=== PATIENT | male | born 1985 | race African-American/Black ===

== ENCOUNTER 2018-09-15 21:12 | Inpatient (IN) ==
[2018-09-15] MEDS ORDERED: levETIRAcetam 500 MG/5 ML VIAL IV ONE (21:20)
[2018-09-15] MEDS ORDERED: LORazepam 2 MG/1 ML VIAL ONE ×2 (21:22→23:21)
[2018-09-15] MEDS ORDERED: ETOMIDATE 20 MG/10 ML VIAL IV STA (21:40)
[2018-09-15] MEDS ORDERED: ROCURONIUM 100 MG/10 ML VIAL IV STA (21:40)
[2018-09-15 21:50] LABS: Alanine Aminotransferase 22 U/L (16-61); Albumin 3.7 G/DL (3.4-5.0); Alkaline Phosphatase 74 U/L (45-117); Aspartate Amino Transferase 38 U/L (0-37); Blood Urea Nitrogen 14 MG/DL (7-18); Glucose 123 MG/DL (74-106); Osmolality,Calculated 284.1 MOS/KG (273-304); Potassium 3.1 MMOL/L (3.5-5.1); Sodium 142 MMOL/L (136-145); Total Protein 7.5 G/DL (6.4-8.3)
[2018-09-15 21:53] LABS: Calcium 14.9 MG/DL (8.5-10.1)
[2018-09-15] MEDS ORDERED: ATROPINE 1 MG/10 ML SYRINGE IV ONE (21:54)
[2018-09-15] MEDS ORDERED: hydrALAZINE 20 MG/1 ML VIAL IV STA (22:07)
[2018-09-15] MEDS ORDERED: LABETALOL 20 MG/4 ML SYRINGE IV STA (22:07)
[2018-09-15 22:09] LABS: Basophils % 0.4 % (0.0-0.8); Eosinophils # 0.2 10*3/uL (0.0-0.87); Eosinophils % 1.7 % (0.00-10.9); Hematocrit 38.4 VOL% (42.0-52.0); Hemoglobin 11.5 GM/DL (14.0-18.0); Immature Granulocytes % 0.3 %; Immature Granulocytes Absolute 0.03 #; Lymphocytes # 3.2 10*3/uL (1.4-4.0); Lymphocytes % 28.6 % (21.2-54.2); Mean Corpuscular HGB Conc 29.9 GM/DL (32-36); Mean Corpuscular Hemoglobin 22 PG (27-34); Mean Corpuscular Volume 71.9 FL (87-102); Monocytes # 1.1 10*3/uL (0.11-0.8); Monocytes % 9.5 % (1.7-12.7); Neutrophils # 6.6 10*3/uL (1.4-7.4); Neutrophils % 59.5 % (38.7-73.9); Platelet Count 183 T/CUMM (130-400); Red Blood Count 5.34 MC/CUMM (3.8-5.5); Red Cell Distribution Width 18.1 % (9.3-17.3); White Blood Count 11.1 T/CUMM (4-12)
[2018-09-15] MEDS ORDERED: SODIUM CHLORIDE 0.9% 1,000 ML IV STA ×2 (22:13→22:33)
[2018-09-15] MEDS ORDERED: FUROSEMIDE 40 MG/4 ML VIAL IV STA (22:14)
[2018-09-15] MEDS ORDERED: methylPREDNISolone SOD SUC 125 MG/2 ML VIAL IV STA (22:14)
[2018-09-15 23:02] LABS: ABG Base Excess 11.5 MMOL/L (-2.5-2.5); ABG HCO3 35.3 MMOL/L (20-26); ABG Oxygen Saturation 99.3 % (95-100); ABG PCO2 60.4 MM HG (35-48); ABG PH 7.415 (7.35-7.45); ABG TCO2 34.3 MMOL/L (23-27)
[2018-09-15 23:22] LABS: Apearance,Urine CLEAR (Clear); Bacteria,Urine Occasional /HPF (Few); Bilirubin,Urine Negative (Negative); Blood, Urine Negative (Negative); Glucose,Urine (UA) Negative (Negative); Hyaline Casts,Urine 1 /LPF (0-3); Ketones,Urine Negative (Negative); Mucus,Urine Occasional /LPF (Occasional); Nitrite,Urine Negative (Negative); Protein,Urine Negative; RBC,Urine 1 /HPF (0-4); Squamous Epithelial Cell,Urine Occasional /HPF (0-10); Urine Color Straw (Yellow); Urine Specific Gravity 1.006 (1.001-1.035); Urine Urobilinogen < 2.0 EU/DL (0.2-1.0); WBC,Urine 3 /HPF (0-6)
[2018-09-15 23:28] LABS: Barbiturates Screen,Urine Negative (Negative); Benzodiazepines Screen,Urine Positive (Negative); Cannabinoid Screen,Urine Negative (Negative); Opiate Screen,Urine Negative (Negative); Phencyclidine Screen,Urine Negative (Negative)
[2018-09-15] MEDS ORDERED: MIDAZOLAM 100 MG in SODIUM CHLORIDE 0.9% 80 ML IV SCH (23:30)
[2018-09-15] MEDS ORDERED: MIDAZOLAM 10 MG/2 ML VIAL IV STA (23:45)
[2018-09-15] MEDS ORDERED: MIDAZOLAM 10 MG/2 ML VIAL ONE (23:48)
[2018-09-16] MEDS ORDERED: ALBUTEROL/IPRATROPIUM 3 ML NEB RESP TX PRN (00:10)
[2018-09-16] MEDS ORDERED: ONDANSETRON 4 MG/2 ML VIAL IV PRN (00:10)
[2018-09-16] MEDS ORDERED: ALBUTEROL 2.5 MG/3 ML NEB RESP TX PRN (00:10)
[2018-09-16] MEDS ORDERED: ACETAMINOPHEN 325 MG TABLET PO PRN (00:10)
[2018-09-16] MEDS ORDERED: metroNIDAZOLE INJ 500 MG in PREMIX 1 EACH IV SCH (00:30)
[2018-09-16] MEDS ORDERED: cefTRIAXone 2,000 MG in SODIUM CHLORIDE 0.9% 100 ML IV SCH (00:30)
[2018-09-16] MEDS ORDERED: THIAMINE INJ 100 MG, FOLIC ACID INJ 1 MG, MULTIVITAMIN INJ 10 ML in SODIUM CHLORIDE 0.9... IV ONE (01:00)
[2018-09-16] MEDS ORDERED: MAGNESIUM SULF RIDER 4 GM in PREMIX 1 EACH IV PRN (01:03)
[2018-09-16] MEDS ORDERED: GLUCAGON 1 MG VIAL IM PRN (01:04)
[2018-09-16 01:10] LABS: Calcium 15.1 MG/DL (8.5-10.1)
[2018-09-16] MEDS: MIDAZOLAM 100 MG in SODIUM CHLORIDE 0.9% 80 ML IV PRN (01:52)
[2018-09-16] MEDS: SODIUM CHLORIDE 0.9% 1,000 ML IV SCH ×4 (01:52→21:29)
[2018-09-16] MEDS ORDERED: LORazepam 2 MG/1 ML VIAL IV PRN (02:19)
[2018-09-16] MEDS: AMPICILLIN/SULBACTAM 3,000 MG in SODIUM CHLORIDE 0.9% 100 ML IV SCH ×4 (02:31→21:18)
[2018-09-16 02:47] LABS: Basophils % 0.2 % (0.0-0.8); Eosinophils % 0.1 % (0.00-10.9); Hematocrit 40.7 VOL% (42.0-52.0); Immature Granulocytes % 0.3 %; Immature Granulocytes Absolute 0.04 #; Lymphocytes # 1.2 10*3/uL (1.4-4.0); Lymphocytes % 9.5 % (21.2-54.2); Mean Corpuscular Hemoglobin 21 PG (27-34); Mean Corpuscular Volume 70.4 FL (87-102); Monocytes # 0.5 10*3/uL (0.11-0.8); Monocytes % 4.1 % (1.7-12.7); Neutrophils # 11.3 10*3/uL (1.4-7.4); Neutrophils % 85.8 % (38.7-73.9); Platelet Count 213 T/CUMM (130-400); Red Blood Count 5.78 MC/CUMM (3.8-5.5); Red Cell Distribution Width 18.6 % (9.3-17.3); White Blood Count 13.1 T/CUMM (4-12)
[2018-09-16] MEDS: PROPOFOL 1,000 MG/100 ML BOTTLE IV SCH ×5 (02:50→23:37)
[2018-09-16] MEDS: PANTOPRAZOLE 40 MG VIAL IV SCH ×2 (02:51→08:12)
[2018-09-16] MEDS: MAGNESIUM SULF RIDER 2 GM in PREMIX 1 EACH IV PRN ×2 (02:56→05:06)
[2018-09-16 02:57] LABS: Hemoglobin 12.3 GM/DL (14.0-18.0)
[2018-09-16] MEDS: POTASSIUM CHLORIDE RIDER 10 MEQ in PREMIX 1 EACH IV PRN ×10 (02:57→21:28)
[2018-09-16 03:01] LABS: INR 1.7; PT Patient Result 18.7 SECS
[2018-09-16 03:32] LABS: Osmolality,Calculated 281.3 MOS/KG (273-304); Potassium 3.2 MMOL/L (3.5-5.1)
[2018-09-16 03:44] LABS: Calcium 15.4 MG/DL (8.5-10.1)
[2018-09-16 03:59] LABS: Folate 10.3 NG/ML (5.4-24.0); Vitamin B12 489 PG/ML (211-911)
[2018-09-16 04:07] LABS: ABG Base Excess 12.3 MMOL/L (-2.5-2.5); ABG HCO3 36.2 MMOL/L (20-26); ABG PCO2 41.2 MM HG (35-48); ABG PH 7.551 (7.35-7.45); ABG TCO2 31.9 MMOL/L (23-27); Allen Test Positive; Pt O2 Delivery Device Ventilator
[2018-09-16 04:07] LABS: % Iron Saturation 11.7 % (18-50); Ferritin 77.2 ng/ml (26-388)
[2018-09-16 04:11] LABS: Sedimentation Rate-Westergren 10 MM/HR (0-15)
[2018-09-16 04:20] LABS: Acanthocytes Few; Anisocytosis 1+; Hypochromasia 1+; Ovalocytes Few
[2018-09-16 04:21] LABS: Platelet Estimate Adequate; Target Cells 1+
[2018-09-16] MEDS: ENOXAPARIN 40 MG/0.4 ML SYRINGE SUBCUT SCH (08:11)
[2018-09-16] MEDS: FOLIC ACID 1 MG TABLET PO SCH (08:12)
[2018-09-16] MEDS: THIAMINE 100 MG TABLET PO SCH (08:12)
[2018-09-16] MEDS: MULTIVITAMIN (CENTRUM) TABLET PO SCH (08:12)
[2018-09-16 09:00] LABS: Hemoglobin A1 (Alkaline) 98.2 % (96.5-98.5); Hemoglobin A2 (Alkaline) 1.8 % (1.5-3.5)
[2018-09-16] MEDS: ALBUTEROL/IPRATROPIUM 3 ML NEB RESP TX SCH ×2 (12:18→19:49)
[2018-09-16] MEDS: FUROSEMIDE 40 MG/4 ML VIAL IV SCH (15:13)
[2018-09-16] MEDS: CALCITONIN 400 UNIT/2 ML VIAL IM SCH (15:14)
[2018-09-17] MEDS: ALBUTEROL/IPRATROPIUM 3 ML NEB RESP TX SCH ×4 (00:23→19:25)
[2018-09-17] MEDS: AMPICILLIN/SULBACTAM 3,000 MG in SODIUM CHLORIDE 0.9% 100 ML IV SCH ×4 (01:13→19:58)
[2018-09-17] MEDS: CALCITONIN 400 UNIT/2 ML VIAL IM SCH ×2 (02:04→17:01)
[2018-09-17] MEDS: SODIUM CHLORIDE 0.9% 1,000 ML IV SCH (03:27)
[2018-09-17 03:53] LABS: ABG Base Excess 5.1 MMOL/L (-2.5-2.5); ABG Oxygen Saturation 99.4 % (95-100); ABG PCO2 45.1 MM HG (35-48); ABG PH 7.433 (7.35-7.45); Allen Test Positive; Pt O2 Delivery Device Ventilator
[2018-09-17] MEDS: PROPOFOL 1,000 MG/100 ML BOTTLE IV SCH ×4 (03:55→20:56)
[2018-09-17 05:24] LABS: Basophils % 0.1 % (0.0-0.8); Hemoglobin 10.9 GM/DL (14.0-18.0); Immature Granulocytes % 0.7 %; Immature Granulocytes Absolute 0.12 #; Mean Corpuscular HGB Conc 29.5 GM/DL (32-36); Mean Corpuscular Hemoglobin 21 PG (27-34); Mean Corpuscular Volume 70.7 FL (87-102); Monocytes % 5.6 % (1.7-12.7); Neutrophils # 14.7 10*3/uL (1.4-7.4); Neutrophils % 82.6 % (38.7-73.9); Platelet Count 153 T/CUMM (130-400); Red Blood Count 5.22 MC/CUMM (3.8-5.5); Red Cell Distribution Width 18.5 % (9.3-17.3); White Blood Count 17.8 T/CUMM (4-12)
[2018-09-17 05:33] LABS: Hematocrit 36.9 VOL% (42.0-52.0)
[2018-09-17 05:49] LABS: Calcium 12.1 MG/DL (8.5-10.1); Osmolality,Calculated 295.4 MOS/KG (273-304); Potassium 3.9 MMOL/L (3.5-5.1)
[2018-09-17 06:20] LABS: Platelet Estimate Adequate; Polychromasia Few; Target Cells Few
[2018-09-17] MEDS: POTASSIUM CHLORIDE RIDER 10 MEQ in PREMIX 1 EACH IV PRN ×2 (06:25→07:42)
[2018-09-17] MEDS ORDERED: hydrALAZINE 20 MG/1 ML VIAL IV ONE (06:35)
[2018-09-17] MEDS: DEXTROSE 50% 25 GM/50 ML SYRINGE IV PRN ×3 (07:48→11:45)
[2018-09-17] MEDS: FOLIC ACID 1 MG TABLET PO SCH (08:03)
[2018-09-17] MEDS: FUROSEMIDE 40 MG/4 ML VIAL IV SCH ×2 (08:03→16:10)
[2018-09-17] MEDS: MULTIVITAMIN (CENTRUM) TABLET PO SCH (08:03)
[2018-09-17] MEDS: THIAMINE 100 MG TABLET PO SCH (08:03)
[2018-09-17] MEDS: ENOXAPARIN 40 MG/0.4 ML SYRINGE SUBCUT SCH (08:03)
[2018-09-17] MEDS: PANTOPRAZOLE 40 MG VIAL IV SCH (08:06)
[2018-09-17] MEDS: DEXTROSE 5% NACL 0.45% 1,000 ML IV SCH (09:11)
[2018-09-18] MEDS: DEXTROSE 50% 25 GM/50 ML SYRINGE IV PRN ×6 (00:08→23:28)
[2018-09-18] MEDS: ALBUTEROL/IPRATROPIUM 3 ML NEB RESP TX SCH ×4 (01:54→19:23)
[2018-09-18] MEDS: CALCITONIN 400 UNIT/2 ML VIAL IM SCH (02:54)
[2018-09-18] MEDS: AMPICILLIN/SULBACTAM 3,000 MG in SODIUM CHLORIDE 0.9% 100 ML IV SCH ×2 (02:55→08:22)
[2018-09-18] MEDS: PROPOFOL 1,000 MG/100 ML BOTTLE IV SCH ×6 (02:55→23:45)
[2018-09-18 04:31] LABS: Allen Test Positive; Pt O2 Delivery Device Ventilator
[2018-09-18 04:32] LABS: ABG Base Excess 3.4 MMOL/L (-2.5-2.5); ABG HCO3 27.5 MMOL/L (20-26); ABG Oxygen Saturation 97.9 % (95-100); ABG PCO2 38.3 MM HG (35-48); ABG PH 7.461 (7.35-7.45); ABG PO2 96.9 MM HG (80-95)
[2018-09-18 05:34] LABS: Calcium 11.4 MG/DL (8.5-10.1); Potassium 3.5 MMOL/L (3.5-5.1)
[2018-09-18] MEDS: DEXTROSE 5% NACL 0.45% 1,000 ML IV SCH (05:35)
[2018-09-18] MEDS: MIDAZOLAM 100 MG in SODIUM CHLORIDE 0.9% 80 ML IV PRN (05:38)
[2018-09-18 07:07] LABS: Basophils % 0.2 % (0.0-0.8); Hematocrit 36.7 VOL% (42.0-52.0); Hemoglobin 11.1 GM/DL (14.0-18.0); Immature Granulocytes % 0.8 %; Immature Granulocytes Absolute 0.14 #; Lymphocytes # 1.6 10*3/uL (1.4-4.0); Lymphocytes % 9.7 % (21.2-54.2); Mean Corpuscular HGB Conc 30.2 GM/DL (32-36); Mean Corpuscular Hemoglobin 21 PG (27-34); Mean Corpuscular Volume 70.8 FL (87-102); Monocytes % 5.7 % (1.7-12.7); Neutrophils # 14.1 10*3/uL (1.4-7.4); Neutrophils % 83.6 % (38.7-73.9); Platelet Count 217 T/CUMM (130-400); Red Blood Count 5.18 MC/CUMM (3.8-5.5); Red Cell Distribution Width 18.3 % (9.3-17.3); White Blood Count 16.9 T/CUMM (4-12)
[2018-09-18] MEDS: PANTOPRAZOLE 40 MG VIAL IV SCH (08:23)
[2018-09-18] MEDS: ENOXAPARIN 40 MG/0.4 ML SYRINGE SUBCUT SCH (08:23)
[2018-09-18] MEDS: POTASSIUM CHLORIDE 20 MEQ/15 ML UDCUP PER TUBE PRN ×2 (08:23→11:44)
[2018-09-18] MEDS: FOLIC ACID 1 MG TABLET PO SCH (08:23)
[2018-09-18] MEDS: MULTIVITAMIN (CENTRUM) TABLET PO SCH (08:23)
[2018-09-18] MEDS: THIAMINE 100 MG TABLET PO SCH (08:23)
[2018-09-18 08:51] LABS: Anisocytosis 1+; Platelet Estimate Normal; Target Cells Few
[2018-09-18 08:52] LABS: Poikilocytosis 1+
[2018-09-18 08:53] LABS: Hypochromasia Slight; Macrocytosis 1+
[2018-09-18] MEDS: DEXTROSE 5% NACL 0.22% 1,000 ML IV SCH (10:48)
[2018-09-18] MEDS: VANCOMYCIN INJ 1,000 MG in SODIUM CHLORIDE 0.9% 250 ML IV SCH ×2 (11:38→23:25)
[2018-09-19] MEDS: ALBUTEROL/IPRATROPIUM 3 ML NEB RESP TX SCH ×4 (00:21→19:40)
[2018-09-19] MEDS: PROPOFOL 1,000 MG/100 ML BOTTLE IV SCH ×8 (02:55→23:06)
[2018-09-19] MEDS: DEXTROSE 50% 25 GM/50 ML SYRINGE IV PRN (03:38)
[2018-09-19 04:04] LABS: ABG Base Excess 1.9 MMOL/L (-2.5-2.5); ABG HCO3 25.5 MMOL/L (20-26); ABG PCO2 35.9 MM HG (35-48); ABG PH 7.469 (7.35-7.45); ABG PO2 92.5 MM HG (80-95); ABG TCO2 26.6 MMOL/L (23-27); Allen Test Positive; Pt O2 Delivery Device Ventilator
[2018-09-19 05:27] LABS: Basophils # 0.1 10*3/uL (0.0-0.2); Basophils % 0.3 % (0.0-0.8); Eosinophils # 0.1 10*3/uL (0.0-0.87); Eosinophils % 0.4 % (0.00-10.9); Immature Granulocytes % 0.5 %; Immature Granulocytes Absolute 0.08 #; Lymphocytes # 1.6 10*3/uL (1.4-4.0); Lymphocytes % 9.6 % (21.2-54.2); Mean Corpuscular HGB Conc 29.4 GM/DL (32-36); Mean Corpuscular Hemoglobin 21 PG (27-34); Mean Corpuscular Volume 72.2 FL (87-102); Monocytes # 1.1 10*3/uL (0.11-0.8); Monocytes % 6.8 % (1.7-12.7); Neutrophils # 13.4 10*3/uL (1.4-7.4); Neutrophils % 82.4 % (38.7-73.9); Platelet Count 164 T/CUMM (130-400); Red Blood Count 4.71 MC/CUMM (3.8-5.5); White Blood Count 16.2 T/CUMM (4-12)
[2018-09-19 05:46] LABS: Hypochromasia 1+
[2018-09-19 05:47] LABS: Ovalocytes Slight; Platelet Estimate Adequate
[2018-09-19 05:49] LABS: Calcium 10.3 MG/DL (8.5-10.1); Potassium 3.3 MMOL/L (3.5-5.1)
[2018-09-19] MEDS ORDERED: MAGNESIUM SULF RIDER 4 GM in PREMIX 1 EACH IV ONE (07:19)
[2018-09-19] MEDS: DEXTROSE 5% NACL 0.22% 1,000 ML IV SCH (08:43)
[2018-09-19] MEDS: LEVOFLOXACIN INJ 750 MG in PREMIX 1 EACH IV SCH (09:25)
[2018-09-19] MEDS: PANTOPRAZOLE 40 MG VIAL IV SCH (09:26)
[2018-09-19] MEDS: ENOXAPARIN 40 MG/0.4 ML SYRINGE SUBCUT SCH (09:26)
[2018-09-19] MEDS: THIAMINE 100 MG TABLET PO SCH (09:26)
[2018-09-19] MEDS: MULTIVITAMIN (CENTRUM) TABLET PO SCH (09:26)
[2018-09-19] MEDS: FOLIC ACID 1 MG TABLET PO SCH (09:26)
[2018-09-19] MEDS: VANCOMYCIN INJ 1,000 MG in SODIUM CHLORIDE 0.9% 250 ML IV SCH ×2 (11:37→23:29)
[2018-09-19] MEDS: POTASSIUM CHLORIDE 20 MEQ/15 ML UDCUP PER TUBE PRN ×3 (11:38→18:28)
[2018-09-20] MEDS: ALBUTEROL/IPRATROPIUM 3 ML NEB RESP TX SCH ×4 (00:50→20:35)
[2018-09-20 01:08] LABS: Basophils % 0.3 % (0.0-0.8); Eosinophils # 0.3 10*3/uL (0.0-0.87); Eosinophils % 2.8 % (0.00-10.9); Hematocrit 29.1 VOL% (42.0-52.0); Hemoglobin 8.6 GM/DL (14.0-18.0); Immature Granulocytes % 0.5 %; Immature Granulocytes Absolute 0.06 #; Lymphocytes % 16.4 % (21.2-54.2); Mean Corpuscular HGB Conc 29.6 GM/DL (32-36); Mean Corpuscular Hemoglobin 21 PG (27-34); Mean Corpuscular Volume 71.3 FL (87-102); Monocytes # 1.2 10*3/uL (0.11-0.8); Monocytes % 9.6 % (1.7-12.7); Neutrophils # 8.4 10*3/uL (1.4-7.4); Neutrophils % 70.4 % (38.7-73.9); Platelet Count 128 T/CUMM (130-400); Red Blood Count 4.08 MC/CUMM (3.8-5.5); White Blood Count 11.9 T/CUMM (4-12)
[2018-09-20 01:33] LABS: Calcium 9.5 MG/DL (8.5-10.1); Osmolality,Calculated 297.1 MOS/KG (273-304); Potassium 3.8 MMOL/L (3.5-5.1)
[2018-09-20] MEDS: DEXTROSE 5% NACL 0.22% 1,000 ML IV SCH ×3 (02:00→22:00)
[2018-09-20] MEDS: POTASSIUM CHLORIDE 20 MEQ/15 ML UDCUP PER TUBE PRN (02:23)
[2018-09-20] MEDS: PROPOFOL 1,000 MG/100 ML BOTTLE IV SCH ×2 (02:48→06:55)
[2018-09-20 04:01] LABS: ABG Base Excess 0.9 MMOL/L (-2.5-2.5); ABG HCO3 25.3 MMOL/L (20-26); ABG Oxygen Saturation 97.6 % (95-100); ABG PCO2 39.4 MM HG (35-48); ABG PH 7.426 (7.35-7.45); ABG PO2 110.7 MM HG (80-95); ABG TCO2 26.5 MMOL/L (23-27); Allen Test Positive; Pt O2 Delivery Device Ventilator
[2018-09-20] MEDS: LEVOFLOXACIN INJ 750 MG in PREMIX 1 EACH IV SCH (09:24)
[2018-09-20] MEDS: ENOXAPARIN 40 MG/0.4 ML SYRINGE SUBCUT SCH (09:33)
[2018-09-20] MEDS: PANTOPRAZOLE 40 MG VIAL IV SCH (09:33)
[2018-09-20] MEDS ORDERED: LORazepam 1 MG TABLET PO PRN (10:16)
[2018-09-20] MEDS ORDERED: LORazepam 2 MG/1 ML VIAL IV PRN (11:57)
[2018-09-20] MEDS: VANCOMYCIN INJ 1,000 MG in SODIUM CHLORIDE 0.9% 250 ML IV SCH (11:59)
[2018-09-20] MEDS ORDERED: HALOPERIDOL 5 MG/ML AMP IM PRN (11:59)
[2018-09-20] MEDS: MULTIVITAMIN (CENTRUM) TABLET PO SCH (12:22)
[2018-09-20] MEDS: THIAMINE 100 MG TABLET PO SCH (12:22)
[2018-09-20] MEDS: FOLIC ACID 1 MG TABLET PO SCH (12:22)
[2018-09-20] MEDS: VANCOMYCIN INJ 1,250 MG in SODIUM CHLORIDE 0.9% 250 ML IV SCH (12:37)
[2018-09-21] MEDS: VANCOMYCIN INJ 1,250 MG in SODIUM CHLORIDE 0.9% 250 ML IV SCH (01:08)
[2018-09-21] MEDS: ALBUTEROL/IPRATROPIUM 3 ML NEB RESP TX SCH ×4 (01:42→20:11)
[2018-09-21] MEDS: DEXTROSE 5% NACL 0.22% 1,000 ML IV SCH ×3 (03:38→19:24)
[2018-09-21 04:00] LABS: ABG Base Excess -1.4 MMOL/L (-2.5-2.5); ABG HCO3 23.2 MMOL/L (20-26); ABG Oxygen Saturation 95.7 % (95-100); ABG PCO2 33.6 MM HG (35-48); ABG PO2 78.2 MM HG (80-95); ABG TCO2 20.1 MMOL/L (23-27); Allen Test Positive; Pt O2 Delivery Device Room Air
[2018-09-21 06:23] LABS: Basophils % 0.2 % (0.0-0.8); Eosinophils # 0.3 10*3/uL (0.0-0.87); Eosinophils % 2.5 % (0.00-10.9); Hematocrit 31.2 VOL% (42.0-52.0); Hemoglobin 9.3 GM/DL (14.0-18.0); Immature Granulocytes % 0.6 %; Immature Granulocytes Absolute 0.06 #; Lymphocytes # 2.3 10*3/uL (1.4-4.0); Lymphocytes % 22.6 % (21.2-54.2); Mean Corpuscular HGB Conc 29.8 GM/DL (32-36); Mean Corpuscular Hemoglobin 21 PG (27-34); Monocytes # 1.3 10*3/uL (0.11-0.8); Monocytes % 12.6 % (1.7-12.7); Neutrophils # 6.3 10*3/uL (1.4-7.4); Neutrophils % 61.5 % (38.7-73.9); Platelet Count 170 T/CUMM (130-400); Red Blood Count 4.46 MC/CUMM (3.8-5.5); White Blood Count 10.2 T/CUMM (4-12)
[2018-09-21 06:29] LABS: Calcium 9.6 MG/DL (8.5-10.1); Osmolality,Calculated 292.4 MOS/KG (273-304); Potassium 3.7 MMOL/L (3.5-5.1)
[2018-09-21] MEDS: MAGNESIUM SULF RIDER 2 GM in PREMIX 1 EACH IV PRN (06:40)
[2018-09-21 07:20] LABS: Hypochromasia 1+; Ovalocytes Slight; Platelet Estimate Adequate
[2018-09-21] MEDS: LEVOFLOXACIN INJ 750 MG in PREMIX 1 EACH IV SCH (08:10)
[2018-09-21] MEDS: LEVOFLOXACIN 750 MG TABLET PO SCH (08:58)
[2018-09-21] MEDS: levETIRAcetam 500 MG TABLET PO SCH ×2 (09:03→21:31)
[2018-09-21] MEDS: PANTOPRAZOLE 40 MG TABLET PO SCH (09:03)
[2018-09-21] MEDS: ENOXAPARIN 40 MG/0.4 ML SYRINGE SUBCUT SCH (09:03)
[2018-09-21] MEDS: FOLIC ACID 1 MG TABLET PO SCH (09:03)
[2018-09-21] MEDS: THIAMINE 100 MG TABLET PO SCH (09:03)
[2018-09-21] MEDS: MULTIVITAMIN (CENTRUM) TABLET PO SCH (09:03)
[2018-09-21] MEDS: POTASSIUM CHLORIDE 20 MEQ/15 ML UDCUP PER TUBE PRN (09:04)
[2018-09-21] MEDS ORDERED: MAGNESIUM SULF RIDER 2 GM in PREMIX 1 EACH IV ONE (13:35)
[2018-09-22] MEDS: ALBUTEROL/IPRATROPIUM 3 ML NEB RESP TX SCH ×4 (00:01→19:43)
[2018-09-22 05:35] LABS: Basophils % 0.3 % (0.0-0.8); Eosinophils # 0.4 10*3/uL (0.0-0.87); Eosinophils % 4.6 % (0.00-10.9); Hematocrit 32.3 VOL% (42.0-52.0); Hemoglobin 9.8 GM/DL (14.0-18.0); Immature Granulocytes % 0.9 %; Immature Granulocytes Absolute 0.07 #; Lymphocytes # 2.5 10*3/uL (1.4-4.0); Lymphocytes % 31.1 % (21.2-54.2); Mean Corpuscular HGB Conc 30.3 GM/DL (32-36); Mean Corpuscular Hemoglobin 21 PG (27-34); Mean Corpuscular Volume 67.6 FL (87-102); Monocytes # 1.1 10*3/uL (0.11-0.8); Monocytes % 14.4 % (1.7-12.7); Neutrophils # 3.9 10*3/uL (1.4-7.4); Neutrophils % 48.7 % (38.7-73.9); Platelet Count 187 T/CUMM (130-400); Red Blood Count 4.78 MC/CUMM (3.8-5.5); Red Cell Distribution Width 17.2 % (9.3-17.3); White Blood Count 7.9 T/CUMM (4-12)
[2018-09-22 05:53] LABS: Osmolality,Calculated 281.3 MOS/KG (273-304); Potassium 3.9 MMOL/L (3.5-5.1)
[2018-09-22 05:56] LABS: Albumin 2.5 G/DL (3.4-5.0); Bilirubin,Total 0.7 MG/DL (0.2-1.0); Calcium 8.7 MG/DL (8.5-10.1); Total Protein 6.5 G/DL (6.4-8.3)
[2018-09-22] MEDS: DEXTROSE 5% NACL 0.22% 1,000 ML IV SCH ×3 (06:03→15:22)
[2018-09-22 06:07] LABS: Hypochromasia 1+; Ovalocytes Slight; Platelet Estimate Adequate; Target Cells Few
[2018-09-22] MEDS: MULTIVITAMIN (CENTRUM) TABLET PO SCH (08:12)
[2018-09-22] MEDS: FOLIC ACID 1 MG TABLET PO SCH (08:12)
[2018-09-22] MEDS: levETIRAcetam 500 MG TABLET PO SCH ×2 (08:12→20:33)
[2018-09-22] MEDS: LEVOFLOXACIN 750 MG TABLET PO SCH (08:12)
[2018-09-22] MEDS: THIAMINE 100 MG TABLET PO SCH (08:12)
[2018-09-22] MEDS: PANTOPRAZOLE 40 MG TABLET PO SCH ×2 (08:12→20:33)
[2018-09-22] MEDS: ENOXAPARIN 40 MG/0.4 ML SYRINGE SUBCUT SCH (08:13)
[2018-09-22] MEDS: LACTULOSE 20 GM/30 ML UDCUP PO SCH ×2 (15:30→20:33)
[2018-09-22] MEDS: PIPERACILLIN/TAZOBACTAM 3,375 MG in SODIUM CHLORIDE 0.9% 100 ML IV SCH (16:49)
[2018-09-23] MEDS: PIPERACILLIN/TAZOBACTAM 3,375 MG in SODIUM CHLORIDE 0.9% 100 ML IV SCH ×2 (00:23→09:12)
[2018-09-23] MEDS: ALBUTEROL/IPRATROPIUM 3 ML NEB RESP TX SCH ×3 (00:47→13:30)
[2018-09-23 04:59] LABS: Basophils % 0.4 % (0.0-0.8); Eosinophils # 0.3 10*3/uL (0.0-0.87); Eosinophils % 3.4 % (0.00-10.9); Hematocrit 29.3 VOL% (42.0-52.0); Hemoglobin 9.1 GM/DL (14.0-18.0); Immature Granulocytes Absolute 0.08 #; Lymphocytes # 2.5 10*3/uL (1.4-4.0); Lymphocytes % 33.2 % (21.2-54.2); Mean Corpuscular HGB Conc 31.1 GM/DL (32-36); Mean Corpuscular Hemoglobin 21 PG (27-34); Mean Corpuscular Volume 67.8 FL (87-102); Monocytes # 1.2 10*3/uL (0.11-0.8); Monocytes % 15.3 % (1.7-12.7); Neutrophils # 3.6 10*3/uL (1.4-7.4); Neutrophils % 46.7 % (38.7-73.9); Platelet Count 196 T/CUMM (130-400); Red Blood Count 4.32 MC/CUMM (3.8-5.5); Red Cell Distribution Width 17.2 % (9.3-17.3); White Blood Count 7.6 T/CUMM (4-12)
[2018-09-23 05:16] LABS: Calcium 8.7 MG/DL (8.5-10.1); Osmolality,Calculated 286.8 MOS/KG (273-304); Potassium 3.6 MMOL/L (3.5-5.1)
[2018-09-23 05:23] LABS: Elliptocytes Few; Hypochromasia 1+; Platelet Estimate Adequate
[2018-09-23] MEDS: MAGNESIUM SULF RIDER 2 GM in PREMIX 1 EACH IV PRN (05:33)
[2018-09-23] MEDS: POTASSIUM CHLORIDE 20 MEQ/15 ML UDCUP PER TUBE PRN (05:35)
[2018-09-23] MEDS: THIAMINE 100 MG TABLET PO SCH (09:11)
[2018-09-23] MEDS: levETIRAcetam 500 MG TABLET PO SCH (09:11)
[2018-09-23] MEDS: MULTIVITAMIN (CENTRUM) TABLET PO SCH (09:11)
[2018-09-23] MEDS: FOLIC ACID 1 MG TABLET PO SCH (09:11)
[2018-09-23] MEDS: PANTOPRAZOLE 40 MG TABLET PO SCH (09:12)
[2018-09-23] MEDS: ENOXAPARIN 40 MG/0.4 ML SYRINGE SUBCUT SCH (09:12)
[2018-09-23] MEDS: LACTULOSE 20 GM/30 ML UDCUP PO SCH (09:12)
[2018-09-23 12:10] VITALS: BP 123/86
== END 2018-09-23 14:25 | disposition home or self-care (01) | DRG 917 ==
LOC: EDBD → EDUNIT# → N.ED 21:12 → SUATTDRO 23:56 → N.EDINP 23:56 → N.ICU 09-16 01:27 → N.4E 09-21 13:25
PROVIDERS: ADMIT Internal Medicine; ATTEND Internal Medicine